=== PATIENT | male | born 1970 | race Caucasian/White ===

== ENCOUNTER → 2022-12-23 | Emergency (ER) | payer BC ==
[~2022-12-23] MED LIST: Aspirin Chewable 81 MG TAB ONE; Nitroglycerin 0.4 MG TAB 1 EACH ONE; Nitroglycerin 2% Ointment 1 INCH/1 GM Packet ONE
[2022-12-23 16:55] LABS: #Basophils 0.1 10x3/uL (0.0-0.2); #Eosinphils 0.2 10x3/uL (0.0-0.5); #Monocytes 0.7 10x3/uL (0.0-1.1); #Neutrophils 4.3 10x3/uL (1.5-8.4); %Basophils 0.6 % (0.0-2.0); %Eosinophils 1.8 % (0.0-6.0); %Monocytes 8.3 % (0.0-10.0); %Neutrophils 51.2 % (40.0-75.0); Hemoglobin 14.1 g/dL (13.5-17.5); Mean Corpuscular HGB CONC 35.6 g/dL (32.0-36.0); Mean Corpuscular Hemoglobin 27.8 pg (27.0-33.0); Mean Platelet Volume 9.7 fl (7.4-10.4); Platelet Count 229 10x3/uL (150-450); RBC Distribution Width 13.4 % (11.5-14.5); Red Blood Cell (RBC) Count 5.08 10x6/uL (4.32-5.72); White Blood Cell (WBC) Count 8.3 10x3/uL (3.5-10.5)
[2022-12-23 17:05] LABS: ALT (SGPT) 35 U/L (8-55); AST (SGOT) 31 U/L (5-34); Albumin 4.2 g/dL (3.5-5.0); Alkaline Phosphatase 47 U/L (40-110); Anion Gap 15 mmol/L (10-20); BUN (Urea Nitrogen) 18 mg/dL (8.4-25.7); Bilirubin, Total 0.5 mg/dL (0.2-1.2); Calc. Creatinine Clearance 0 mL/min (70-130); Calcium 9.5 mg/dL (7.8-10.44); Carbon Dioxide 24 mmol/L (22-29); Chloride 104 mmol/L (98-107); Estimated GFR 81; Globulin 2.7 g/dL (2.4-3.5); Glucose 93 mg/dL (70-105); Potassium 3.8 mmol/L (3.5-5.1); Protein, Total 6.9 g/dL (6.0-8.3); Sodium 139 mmol/L (136-145)
[2022-12-23 17:28] LABS: CKMB 7.5 ng/mL (0-6.6)
== END ==
LOC: CSHERS 16:24
DX: R07.9 Chest pain, unspecified (principal); R77.8 Other specified abnormalities of plasma proteins; I10 Essential (primary) hypertension; Z79.899 Other long term (current) drug therapy
CPT/HCPCS: 71045; 80053; 82553; 84484; 85025; 93005

== ENCOUNTER 2023-08-03 12:46 | Outpatient (CLI) | payer OTHER | END 2023-08-03 12:47 | disposition home or self-care (01) | LOC: CSHULT 12:46 | PROVIDERS: ATTEND Chiropractor | DX: I49.9 Cardiac arrhythmia, unspecified (principal); I51.7 Cardiomegaly; I38 Endocarditis, valve unspecified | CPT/HCPCS: 93005; 93010; 93306 ==